=== PATIENT | male | born 1955 | race Hispanic/Latino ===

== ENCOUNTER → 2024-02-02 | Outpatient (CLI) | payer MEDICARE, MEDICAID ==
[~2024-02-02] MED LIST: DIATR MEGLU/DIATRIZOATE SODIUM 30 ML BOTTLE ONE; IOHEXOL 350 MG/ML 100ML INFUS..BTL IV ONE
--- NOTE | 2024-02-02 13:52 | HMCIMG ---
CT ABDOMEN/PELVIS W/CONTRAST REASON: Unspecified abdominal pain COMPARISON: None. TECHNIQUE: Images are obtained from lung bases to the symphysis pubis following IV contrast, 100 cc Omnipaque 350. FINDINGS: Lung bases are clear. There is a 4.5 x 6.3 cm mass in the lateral segment of the left lobe of the liver. This has irregular peripheral contrast enhancement. 7 minute delay image shows this area isointense with the remainder of the liver. These findings are nonspecific. This could represent hemangioma, other masses are also possible. MRI scans recommended for further evaluation given patient's history of previous colon cancer. There is also a 1 cm cyst in the lateral portion of the right lobe of the liver.. There is a 1.5 cm cyst left kidney, kidneys appear otherwise normal.. Spleen and pancreas appear unremarkable. The gallbladder appears normal as well. There is been a right hemicolectomy. Bowel loops appear otherwise unremarkable. There is no evidence of obstruction. There is no evidence of free fluid or intraperitoneal air. There are no focal fluid collections. Aorta and retroperitoneum appear normal. There is no retroperitoneal or pelvic lymphadenopathy. Prostate is enlarged at 6.1 x 5.8 x 6.9 cm. Bladder is only partially distended but appears moderately thick-walled. Pelvic soft tissues appear otherwise unremarkable. The anterior abdominal wall is intact. Osseous structures appear unremarkable. IMPRESSION: 1. 4.5 x 6.3 cm mass lateral segment left lobe of the liver, this could represent hemangioma but MRI of the liver. Postcontrast is recommended for further evaluation given patient's history of colon cancer. 2. Enlarged prostate at 6.1 x 5.8 x 6.9 cm, bladder appears thick-walled. CT was performed with one or more following dose reduction techniques: automated exposure control, adjustment of the mA and kv according to patient's size, or use of a iterative reconstruction technique.
== END | disposition home or self-care (01) ==
LOC: RAH 10:00
PROVIDERS: ATTEND Surgery
DX: N40.0 Benign prostatic hyperplasia without lower urinary tract symptoms (principal); R16.0 Hepatomegaly, not elsewhere classified; K76.89 Other specified diseases of liver; R10.9 Unspecified abdominal pain; Z85.038 Personal history of other malignant neoplasm of large intestine; Z90.49 Acquired absence of other specified parts of digestive tract
CPT/HCPCS: 74177; Q9963; Q9967